=== PATIENT | female | born 2005 | race Caucasian/White ===

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

== ENCOUNTER 2023-04-22 13:55 | Emergency (ER) | payer BC, SELFPAY ==
[2023-04-22 13:56] VITALS: BP 133/79; PULSE 77; RESP 14; TEMP 36.4; O2SAT 98; BMI 29.1
--- NOTE | 2023-04-22 14:08 | EX.ED.VIS.HA ---
HPI History of Present Illness Chief Complaint: Headache Informant: patient Onset/Context/Timing Onset: Days (9 days) Narrative Narrative: Patient presents secondary to migraine headache. She has a history of frequent migraines and does follow-up with a neurologist. This particular migraine has been ongoing for the past 9 days. She had an appointment with her neurologist on the fourth but it was canceled. She is trying her normal meds at home without improvement. She denies head injury or URI symptoms. She complains of pain to the left frontal area and behind her left eye. She had some slight vision changes when driving yesterday. She has nausea but no vomiting. She does have light sensitivity. [facility] Medical History (Updated 04/22/23 @ 15:[address] Heidy Perkins MD) ADHD Migraines Home Medications methylphenidate HCl 54 mg tablet,extended release 24 hr (Concerta) 36 mg PO DAILY 03/24/21 [History Last Taken Unknown] Allergy/AdvReac Type Severity Reaction Status Date / Time amoxicillin Allergy Hives Verified 04/22/23 13:55 Social History household members: family Smoking Status: Never smoker alcohol intake: never substance use type: does not use ROS ROS ED Constitutional Constitutional ED: Denies chills or fever(s) Eyes Eyes: Reports change in vision; Denies discharge from eye(s) ENT ENT ED: Denies discharge from eye(s), rhinorrhea or sore throat Cardiovascular Cardiovascular: Denies chest pain or palpitations Respiratory/Chest Respiratory/Chest: Denies cough or dyspnea Gastrointestinal Gastrointestinal: Reports nausea; Denies abdominal pain or vomiting Musculoskeletal Musculoskeletal: Denies back pain, extremity pain or neck pain Integumentary Denies Abrasions or rash Neurologic Neurologic: Reports headache(s); Denies weakness Psychiatric Psychiatric: Denies anxiety or depression Allergic/Immunologic Allergic/Immunologic ED: Denies lip swelling or urticaria EXAM Physical Exam Const Vital Signs: 04/22/23 13:56 Temperature 97.6 F L Temperature Source Temporal Pulse Rate 77 Respiratory Rate 14 Blood Pressure 133/79 H Blood Pressure Mean 97 Pulse Ox 98 Oxygen Delivery Method Room Air Positive well nourished and well developed General Appearance ED: well developed HEENT Reports normocephalic and head/scalp atraumatic Eyes EOMs intact bilaterally Neck supple Chest Wall inspection of chest normal and palpation of chest normal Resp normal respiratory effort and clear to auscultation bilaterally Cardio regular rate and regular rhythm GI non-tender Auscultation: hypoactive bowel sounds Palpation: soft Extremity normal to inspection Neuro oriented x3 and no sensory deficits noted Sensorium / Orientation: alert Motor Exam: strength 5/5 throughout Psych mental status grossly normal Skin no rashes or lesions noted MDM MDM MDM Narrative Medical decision making narrative: IV line established. Patient given IV fluids along with Toradol, Reglan, Benadryl. Treatment and Re-Evaluation Narrative: Patient was reevaluated an hour after her medication. She states her headache is significantly improved. She has family here at bedside with her who will drive her home. Return instructions were provided. Discharge Plan Triage Chief Complaint: Headache ED Provider: Heidy Perkins Dx/Rx/DC Orders Clinical Impression: Migraine Instructions: ED, Migraine (Classical) Prescriptions: No Action methylphenidate HCl [Concerta] 54 mg tablet extended release 24hr 36 mg PO DAILY Primary Care Provider: Alyssa Holloway Referrals: Alyssa Holloway MD [Primary Care Provider] - As Needed Disposition Disposition: Home, Self Care
[2023-04-22] MEDS: 0.9% Normal Saline (1000mL) 1,000 ML 999 ML IV (14:17)
[2023-04-22] MEDS: Ketorolac 30 MG/ML Syringe IV (14:18)
[2023-04-22] MEDS: Metoclopramide 10 MG/2 ML Vial IV (14:19)
[2023-04-22] MEDS: DiphenhydrAMINE 50 MG/ML Syringe 25 MG IV (14:19)
== END 2023-04-22 15:31 | disposition home or self-care (01) ==
PROVIDERS: Emergency Provider Emergency Medicine; PCP Pediatrics; Visit Provider Emergency Medicine
DX: G43.909 Migraine, unspecified, not intractable, without status migrainosus (principal)
CPT/HCPCS: 96361; 96374; 96375; 99283; J7030; A4216

== ENCOUNTER 2023-07-29 10:35 | Emergency (ER) | payer BC, SELFPAY ==
[2023-07-29 10:36] VITALS: BP 125/70; PULSE 85; RESP 16; TEMP 35.4; O2SAT 100
--- NOTE | 2023-07-29 10:52 | EX.ED.VIS.HA ---
HPI History of Present Illness Chief Complaint: Headache Detail of Chief Complaint: Headache Informant: patient Narrative Narrative: Patient presents to the emergency department with complaint of a headache that started 3 days ago. Patient has history of migraines. Headache location is behind the left eye which is classic for her. Patient normally takes Ubrelvy prescribed by neurologist but did not seem to help. She complains of nausea. She denies photophobia. She has been to the ER before for these headaches. Denies recent illness. Denies falls or head injuries. [facility] Medical History (Updated 07/29/23 @ 11:[address] Carmelo Santos, DO) ADHD Migraines Home Medications methylphenidate HCl 54 mg tablet,extended release 24 hr (Concerta) 36 mg PO DAILY 03/24/21 [History Last Taken Unknown] Allergy/AdvReac Type Severity Reaction Status Date / Time amoxicillin Allergy Hives Verified 04/22/23 13:55 Social History household members: family Smoking Status: Never smoker alcohol intake: never substance use type: does not use ROS ROS ED Review of Systems ROS Unobtainable: other Constitutional Constitutional ED: Reports lethargy; Denies chills, fever(s), sweats or weight loss Eyes Eyes: Denies blurry vision, change in vision or diplopia ENT ENT ED: Denies rhinorrhea or sore throat Cardiovascular Cardiovascular: Reports chest pain and racing heartbeat; Denies orthopnea Respiratory/Chest Respiratory/Chest: Reports dyspnea and dyspnea on exertion; Denies cough, orthopnea or sputum Gastrointestinal Gastrointestinal: Reports nausea; Denies abdominal pain, diarrhea or vomiting Genitourinary Genitourinary ED: Denies dysuria, hematuria or urinary frequency Musculoskeletal Musculoskeletal: Denies arthralgias, back pain, myalgias or neck pain Integumentary Denies abscess, Abrasions or rash Neurologic Neurologic: Reports headache(s); Denies weakness Psychiatric Psychiatric: Denies anxiety, depression or suicidal thoughts Endocrine Endocrinology: Denies polydipsia, polyphagia or polyuria Hematologic/Lymphatic Hematologic/Lymphatic: Denies easy bleeding, easy bruising or lymphadenopathy Allergic/Immunologic Allergic/Immunologic ED: Denies mouth swelling, tongue swelling or urticaria EXAM Physical Exam Const Vital Signs: 07/29/23 10:36 07/29/23 12:21 Temperature 95.8 F L Temperature Source Temporal Pulse Rate 85 77 Respiratory Rate 16 16 Blood Pressure 125/70 H 127/69 H Blood Pressure Mean 88 88 Pulse Ox 100 100 Oxygen Delivery Method Room Air Positive well nourished and well developed General Appearance ED: well developed and NAD HEENT Reports TM's clear and moist mucous membranes normocephalic and atraumatic; Negative for trauma or tenderness Tympanic Membrane ED: Yes TM's clear Eyes PERRL and EOMs intact bilaterally General Eye ED: Negative for pale conjunctiva or scleral icterus Neck no lymphadenopathy, supple and no JVD General: Negative for tenderness Chest Wall inspection of chest normal and palpation of chest normal Chest: Negative for tenderness Resp normal respiratory effort and clear to auscultation bilaterally Effort and Inspection: Negative for respiratory distress or pain with movement Auscultation: Negative for rhonchi, wheezes or diminished lung sounds Cardio regular rate, regular rhythm, S1 normal heart sound, S2 normal heart sound and no murmurs Peripheral Pulses: pulses 2+ throughout GI normal to inspection, nondistended, normoactive bowel sounds, soft to palpation, non-tender, non-distended and no masses Back/Spine no CVA tenderness and no thoracic nor lumbar tenderness Extremity normal to inspection General Extremety ED: Negative for edema General Extremity: Negative for edema Neuro oriented x3, CN's II-XII intact bilaterally, no sensory deficits noted and gait normal Neuro Narrative: Finger-nose and heel mad[place] testing within normal limits, negative Romberg, negative for drift, fundi benign. Sensorium / Orientation: awake, alert, oriented to person, oriented to place and oriented to time Motor Exam: strength 5/5 throughout and strength abnormal Psych mental status grossly normal Skin no rashes or lesions noted and no wounds MDM MDM MDM Narrative Medical decision making narrative: Tesfaye with headache that typical of her migraines. IV line will be established. Patient will be given a liter normal same fluid bolus as well as Reglan, Benadryl, and Toradol. After treatment patient headache mostly resolved currently rates her pain a 1 out of 10. Will discharge to home. Advised to push fluids. Advised return if worsening headache, difficulty with balance or speech, or condition worsening way. Discharge Plan Triage Chief Complaint: Headache ED Provider: Carmelo Santos Dx/Rx/DC Orders Clinical Impression: FH: migraine headache Instructions: ED, Migraine (Classical) Prescriptions: No Action methylphenidate HCl [Concerta] 54 mg tablet extended release 24hr 36 mg PO DAILY Primary Care Provider: Alyssa Holloway Referrals: Alyssa Holloway MD [Primary Care Provider] - Activity Restrictions/Additional Instructions: Follow-up with your neurologist as needed. Disposition Disposition: Home, Self Care Discharge Date/Time: 07/29/23 12:27
[2023-07-29] MEDS: DiphenhydrAMINE 50 MG/ML Syringe 25 MG IV (11:04)
[2023-07-29] MEDS: 0.9% Normal Saline (1000mL) 1,000 ML 1000 ML IV (11:04)
[2023-07-29] MEDS: Metoclopramide 10 MG/2 ML Vial IV (11:05)
[2023-07-29] MEDS: Ketorolac 30 MG/ML Syringe IV (11:05)
[2023-07-29 12:21] VITALS: BP 127/69; PULSE 77; RESP 16; O2SAT 100
--- OUTSIDE RECORDS SUMMARY | 2023-07-29 12:23 | XMS RPT_ITS | CCD ---
Author Name Unknown Address [address] [place] [address] Organization [facility] Care Team Providers Care Composite Mechanic Name Role Phone Jewel MENDOZA, Porsha Primary Care Provider PORSHA HOLLOWAY Attending Unavailable JEWEL, PORSHA Primary Care Unavailable JESSICA SHERMAN Attending Unavailable JESSICA SHERMAN Referring Unavailable JEWEL, PORSHA Primary Care Unavailable JEWEL, PORSHA Primary Care Unavailable JEWEL, PORSHA Primary Care Unavailable NENA AGUERO Attending Unavailable JEWEL, PORSHA Primary Care Unavailable JEWEL, PORSHA Attending Unavailable JEWEL, PORSHA Primary Care Unavailable JEWEL, PORSHA Primary Care Unavailable JEWEL, PORSHA Referring Unavailable JEWEL, PORSHA Primary Care Unavailable Allergies Allergy Classification Reported Allergen(s) Allergy Type Date of Onset Reaction(s) Facility (12 sources) Amoxicillin; Translations: [AMOXICILLIN] Drug Allergy 06-18-2008 [facility] Work Phone: Medications Current Medications Medication Drug Class(es) Dates Sig (Normalized) Sig (Original) predniSONE 20 mg oral tablet (1 source) Start: 04-18-2023 End: 04-23-2023 take 2 tablets by mouth once daily predniSONE (DELTASONE) 20 mg tablet Indications: Headache, unspecified headache type Take 2 tablets by mouth once daily for 5 days. 10 tablet 0 04/18/2023 04/23/2023 Active Completed/Discontinued Medications Medication Drug Class(es) Dates Sig (Normalized) Sig (Original) escitalopram 10 mg oral tablet (12 sources) Serotonin Reuptake Inhibitor Start: 05-29-2021 End: 04-02-2022 take 1 tablet by mouth once daily escitalopram oxalate (LEXAPRO) 10 mg tablet Take 1 tablet by mouth once daily. 90 tablet 2 04/03/2022 Active Problems Active Problems Problem Classification Problem Date Documented Date Episodic/Chronic Anxiety disorders (11 sources) Generalized anxiety disorder; Translations: [Generalized anxiety disorder] Onset: 04-27-2021 04-27-2021 Chronic Conditions associated with dizziness or vertigo (1 source) Acute labyrinthitis; Translations: [Labyrinthitis, unspecified ear] Episodic Disorders usually diagnosed in infancy, childhood, or adolescence (11 sources) Attention deficit hyperactivity disorder, predominantly inattentive type; Translations: [Other specified behavioral and emotional disorders with onset usually occurring in childhood and adolescence] Onset: 04-15-2014 04-15-2014 Chronic Headache; including migraine (14 sources) Migraine; Translations: [Migraine, unspecified, not intractable, without status migrainosus] Onset: 04-04-2021 04-04-2021 Chronic Headache; including migraine (1 source) Headache; Translations: [Headache, unspecified headache type] 04-18-2023 Episodic Nutritional deficiencies (2 sources) Vitamin D deficiency; Translations: [Vitamin D deficiency, unspecified] Onset: 11-26-2022 Chronic Other eye disorders (1 source) Chalazion of left upper eyelid; Translations: [Chalazion left upper eyelid] Episodic Other upper respiratory infections (4 sources) Sore throat symptom; Translations: [Acute pharyngitis, unspecified] Episodic Past or Other Problems Problem Classification Problem Date Documented Da te Episodic/Chronic Diabetes mellitus without complication (2 sources) Hyperglycemia; Translations: [Hyperglycemia, unspecified] Onset: 11-26-2022 Episodic Other screening for suspected conditions (not mental disorders or infectious disease) (5 sources) Patient encounter status; Translations: [Encounter for screening for other suspected endocrine disorder] Onset: 11-26-2022 Episodic Results Test Name Value Interpretation Reference Range Facil ity Vital Signs Date Time Vital Sign Value Performing Clinician Ольга sandoval 05-02-2023 11:24-0400 Body height 160 cm Nena Aguero APRN.CNP Work Phone: [facility] 05-02-2023 11:24-0400 Body weight 74.84 kg Nena Aguero APRN.CNP Work Phone: [facility] 05-02-2023 11:24-0400 Diastolic blood pressure 79 mm[Hg] Nena Aguero DANCE DIRECTOR.PUMPMAN Work Phone: [facility] 05-02-2023 11:24-0400 Heart rate 86 /min Nena Aguero DANCE DIRECTOR.PUMPMAN Work Phone: [facility] 05-02-2023 11:24-0400 Systolic blood pressure 129 mm[Hg] Nena Aguero DANCE DIRECTOR.PUMPMAN Work Phone: [facility] 04-18-2023 08:54-0400 Body temperature 97.9 [degF] Chang Roberto DANCE DIRECTOR.PUMPMAN Work Phone: [facility] 04-18-2023 08:54-0400 Body weight 74.12 kg Chang Roberto DANCE DIRECTOR.PUMPMAN Work Phone: [facility] 04-18-2023 08:54-0400 Diastolic blood pressure 78 mm[Hg] Chang Roberto DANCE DIRECTOR.PUMPMAN Work Phone: [facility] 04-18-2023 08:54-0400 Heart rate 90 /min Chang Roberto DANCE DIRECTOR.PUMPMAN Work Phone: [facility] 04-18-2023 08:54-0400 Respiratory rate 19 /min Chang Roberto DANCE DIRECTOR.PUMPMAN Work Phone: [facility] 04-18-2023 08:54-0400 SaO2% (BldA) [Mass fraction] 99 % Chang Roberto DANCE DIRECTOR.PUMPMAN Work Phone: [facility] 04-18-2023 08:54-0400 Systolic blood pressure 100 mm[Hg] Chang Roberto DANCE DIRECTOR.PUMPMAN Work Phone: [facility] 11-26-2022 13:18-0400 Body temperature 98.1 [degF] Porsha Holloway MD Work Phone: [facility] 11-26-2022 13:18-0400 Body weight 72.76 kg Porsha Holloway MD Work Phone: [facility] 11-26-2022 13:18-0400 Diastolic blood pressure 80 mm[Hg] Porsha Holloway MD Work Phone: [facility] 11-26-2022 13:18-0400 Heart rate 104 /min Porsha Holloway MD Work Phone: [facility] 11-26-2022 13:18-0400 Respiratory rate 20 /min Porsha Holloway MD Work Phone: [facility] 11-26-2022 13:18-0400 Systolic blood pressure 116 mm[Hg] Porsha Holloway MD Work Phone: [facility] 10-11-2022 07:36-0400 Body temperature 98.1 [degF] Flor Cline DANCE DIRECTOR.PUMPMAN Work Phone: [facility] 10-11-2022 07:36-0400 Body weight 71.76 kg Flor Cline DANCE DIRECTOR.PUMPMAN Work Phone: [facility] 10-11-2022 07:36-0400 Diastolic blood pressure 78 mm[Hg] Flor Cline DANCE DIRECTOR.PUMPMAN Work Phone: [facility] 10-11-2022 07:36-0400 Heart rate 116 /min Flor Cline DANCE DIRECTOR.PUMPMAN Work Phone: [facility] 10-11-2022 07:36-0400 Respiratory rate 21 /min Flor Cline DANCE DIRECTOR.PUMPMAN Work Phone: [facility] 10-11-2022 07:36-0400 SaO2% (BldA) [Mass fraction] 98 % Flor Cline DANCE DIRECTOR.PUMPMAN Work Phone: [facility] 10-11-2022 07:36-0400 Systolic blood pressure 98 mm[Hg] Flor Cline DANCE DIRECTOR.PUMPMAN Work Phone: [facility] 08-07-2022 08:15-0500 Body temperature 97.2 [degF] Chang Roberto DANCE DIRECTOR.PUMPMAN Work Phone: [facility] 08-07-2022 08:15-0500 Body weight 72.3 kg Chang Roberto DANCE DIRECTOR.PUMPMAN Work Phone: [facility] 08-07-2022 08:15-0500 Diastolic blood pressure 78 mm[Hg] Chang Roberto DANCE DIRECTOR.PUMPMAN Work Phone: [facility] 08-07-2022 08:15-0500 Heart rate 94 /min Chang Pardeep DANCE DIRECTOR.PUMPMAN Work Phone: [facility] 08-07-2022 08:15-0500 Respiratory rate 18 /min Chang Roberto DANCE DIRECTOR.PUMPMAN Work Phone: [facility] 08-07-2022 08:15-0500 SaO2% (BldA) [Mass fraction] 97 % Chang Roberto DANCE DIRECTOR.PUMPMAN Work Phone: [facility] 08-07-2022 08:15-0500 Systolic blood pressure 110 mm[Hg] Chang Pardeep DANCE DIRECTOR.PUMPMAN Work Phone: [facility] 04-27-2022 13:41-0400 Body weight 70.76 kg Jessica Sherman DO Work Phone: [facility] 04-27-2022 13:41-0400 Diastolic blood pressure 73 mm[Hg] Jessica Sherman DO Work Phone: [facility] 04-27-2022 13:41-0400 Heart rate 75 /min Jessica Sherman DO Work Phone: [facility] 04-27-2022 13:41-0400 Systolic blood pressure 110 mm[Hg] Jessica Sherman DO Work Phone: [facility] 03-16-2022 12:58-0400 Body temperature 98.71 [degF] Jennifer Pulido DANCE DIRECTOR.PUMPMAN Work Phone: [facility] 03-16-2022 12:58-0400 Body weight 71.58 kg Jennifer Pulido DANCE DIRECTOR.PUMPMAN Work Phone: [facility] 03-16-2022 12:58-0400 Diastolic blood pressure 82 mm[Hg] Jennifer Praisler-Wood DANCE DIRECTOR.PUMPMAN Work Phone: [facility] 03-16-2022 12:58-0400 Heart rate 86 /min Jennifer Praisler-Wood DANCE DIRECTOR.PUMPMAN Work Phone: [facility] 03-16-2022 12:58-0400 Respiratory rate 18 /min Jennifer Praisler-Wood DANCE DIRECTOR.PUMPMAN Work Phone: [facility] 03-16-2022 12:58-0400 SaO2% (BldA) [Mass fraction] 100 % Jennifer Praisler-Wood DANCE DIRECTOR.PUMPMAN Work Phone: [facility] 03-16-2022 12:58-0400 Systolic blood pressure 120 mm[Hg] Jennifer Praisler-Wood DANCE DIRECTOR.PUMPMAN Work Phone: [facility] 03-05-2022 13:32-0400 Body temperature 97.7 [degF] Porsha Holloway MD Work Phone: [facility] 03-05-2022 13:32-0400 Body weight 70.67 kg Porsha Holloway MD Work Phone: [facility] 03-05-2022 13:32-0400 Diastolic blood pressure 76 mm[Hg] Porsha Holloway MD Work Phone: [facility] 03-05-2022 13:32-0400 Heart rate 88 /min Porsha Holloway MD Work Phone: [facility] 03-05-2022 13:32-0400 Respiratory rate 16 /min Porsha Holloway MD Work Phone: [facility] 03-05-2022 13:32-0400 Systolic blood pressure 116 mm[Hg] Porsha Holloway MD Work Phone: [facility] 12-05-2021 13:35-0400 Body temperature 98.6 [degF] Porsha Holloway MD Work Phone: [facility] 12-05-2021 13:35-0400 Body weight 65.77 kg Porsha Holloway MD Work Phone: [facility] 12-05-2021 13:35-0400 Diastolic blood pressure 72 mm[Hg] Porsha Holloway MD Work Phone: [facility] 12-05-2021 13:35-0400 Heart rate 88 /min Porsha Holloway MD Work Phone: [facility] 12-05-2021 13:35-0400 Respiratory rate 16 /min Porsha Holloway MD Work Phone: [facility] 12-05-2021 13:35-0400 Systolic blood pressure 110 mm[Hg] Porsha Holloway MD Work Phone: [facility] Encounters Encounter Date Encounter Type Care Provider Facility Start: 05-02-2023 End: 05-02-2023 ambulatory NENA AGUERO Facility:[facility] Start: 05-02-2023 End: 05-02-2023 Patient encounter procedure Nena Aguero DANCE DIRECTOR.PUMPMAN Work Phone: Neurology Procedures Date Procedure Procedure Detail Performing Clinician Start: 10-11-2022 STREP A MOLECULAR (POC) Flor Cline DANCE DIRECTORShelliePUMPMAN Work Phone: Start: 08-07-2022 STREP A MOLECULAR (POC) [facility] Provider Start: 02-24-2022 Adult depression screening assessment Porsha Holloway MD Work Phone: Start: 12-02-2021 Adult depression screening assessment Porsha Holloway MD Work Phone: Plan of Treatment Date Care Activity Detail Author Start: 03-16-2024 Urine microalbumin profile [facility] Start: 03-15-2023 Covid-19 Vaccine () Covid-19 Vaccine () [facility] Start: 03-15-2023 Influenza vaccination [facility] Start: 02-24-2023 Adult depression screening assessment DEPRESSION SCREENING [facility] Start: 12-02-2022 Adult depression screening assessment DEPRESSION SCREENING [facility] Start: 11-26-2022 End: 07-15-2023 Basic metabolic 2000 panel - Serum or Plasma [facility] Work Phone: Immunizations Immunization Date Immunization Notes Care Provider Frantz dailey 05-11-2021 COVID-19 vaccine, ag e 12+ yr ([employer] - PURPLE TOP) Porsha Holloway MD Work Phone: [facility] 07-16-2019 influenza, injectabl e, quadrivalent, preservative free Porsha Holloway MD Work Phone: [facility] 07-16-2019 meningococcal polysaccharide (groups A, C, Y and W-135) diphtheria toxoid conjugate vaccine (MCV4P) Porsha Holloway MD Work Phone: [facility] 07-16-2019 influenza virus vacc ine, unspecified formulation Chang Roberto APRN.CNP Work Phone: [facility] 01-23-2016 Human Papillomavirus 9-valent vaccine Porsha Holloway MD Work Phone: [facility] 02-11-2015 human papilloma viru s vaccine, quadrivalent Porsha Holloway MD Work Phone: [facility] 04-30-2014 influenza, injectabl e, quadrivalent, preservative free Porsha Holloway MD Work Phone: [facility] 03-16-2014 human papilloma viru s vaccine, quadrivalent Porsha Holloway MD Work Phone: [facility] 03-16-2014 meningococcal polysaccharide (groups A, C, Y and W-135) diphtheria toxoid conjugate vaccine (MCV4P) Porsha Holloway MD Work Phone: [facility] 03-16-2014 tetanus toxoid, redu stalin diphtheria toxoid, and acellular pertussis vaccine, adsorbed Porsha Holloway MD Work Phone: [facility] 05-27-2010 influenza virus vacc ine, live, attenuated, for intranasal use Porsha Holloway MD Work Phone: [facility] 04-14-2009 influenza virus vacc ine, live, attenuated, for intranasal use Porsha Holloway MD Work Phone: [facility] Work Phone: 04-21-2008 influenza virus vacc ine, unspecified formulation Porsha Holloway MD Work Phone: [facility] Work Phone: 02-24-2008 diphtheria, tetanus toxoids and acellular pertussis vaccine Porsha Holloway MD Work Phone: [facility] Work Phone: 02-24-2008 measles, mumps and rubella virus vaccine Porsha Holloway MD Work Phone: [facility] Work Phone: 02-24-2008 poliovirus vaccine, inactivated Porsha Holloway MD Work Phone: [facility] Work Phone: 02-24-2008 varicella virus vaccine Angela Holloway MD Work Phone: [facility] Work Phone: 02-27-2005 diphtheria, tetanus toxoids and acellular pertussis vaccine Porsha Holloway MD Work Phone: [facility] Work Phone: 02-27-2005 pneumococcal conjuga te vaccine, 7 valent Porsha Holloway MD Work Phone: [facility] Work Phone: 11-22-2004 haemophilus influenz ae type b vaccine, HbOC conjugate Porsha Holloway MD Work Phone: [facility] Work Phone: 11-22-2004 measles, mumps and rubella virus vaccine Porsha Holloway MD Work Phone: [facility] Work Phone: 11-22-2004 poliovirus vaccine, inactivated Porsha Holloway MD Work Phone: [facility] Work Phone: 02-29-2004 varicella virus vaccine Angela Holloway MD Work Phone: [facility] Work Phone: 2003 DTaP-hepatitis B and poliovirus vaccine Porsha Holloway MD Work Phone: [facility] Work Phone: 2003 haemophilus influenz ae type b vaccine, HbOC conjugate Porsha Holloway MD Work Phone: [facility] Work Phone: 2003 pneumococcal conjuga te vaccine, 7 valent Porsha Holloway MD Work Phone: [facility] Work Phone: 2003 DTaP-hepatitis B and poliovirus vaccine Porsha Holloway MD Work Phone: [facility] Work Phone: 2003 haemophilus influenz ae type b vaccine, HbOC conjugate Porsha Holloway MD Work Phone: [facility] Work Phone: 2003 pneumococcal conjuga te vaccine, 7 valent Porsha Holloway MD Work Phone: [facility] Work Phone: 2003 DTaP-hepatitis B and poliovirus vaccine Porsha Holloway MD Work Phone: [facility] Work Phone: 2003 haemophilus influenz ae type b vaccine, HbOC conjugate Porsha Holloway MD Work Phone: [facility] Work Phone: 2003 pneumococcal conjuga te vaccine, 7 valent Porsha Holloway MD Work Phone: [facility] Work Phone: Payers Date Payer Category Payer Unknown [employer] PPO OOS [id number] 2019-Present [phone] [address] [place] [address] PPO [id number] 2019 Unknown [id number] 2019 Unknown [id number] Social History Date Type Detail Facility Start: 03-05-2022 Tobacco smoking stat us NHIS Never smoked tobacco [facility] Start: 12-05-2021 End: 05-02-2023 Alcohol intake Current non-drinker of alcohol (finding) [facility] Start: 12-02-2021 History SDOH Social Connections Phone 5 [facility] Start: 12-02-2021 History SDOH Social Connections Get Together 2 [facility] Start: 12-02-2021 History SDOH Social Connections Synagogue 1 [facility] Start: 12-02-2021 History SDOH Social Connections Meetings 3 [facility] Start: 12-02-2021 History SDOH Social Connections Living 98 [facility] Start: 12-02-2021 History SDOH Physica l Activity MPS 6 [facility] Start: 02-16-2009 End: 03-05-2022 Tobacco Comment Not at home but grandmother smokes [facility] Start: 2003 Sex Assigned At Not on file [facility] Start: 11-25-2021 End: 04-27-2022 Exposure to SARS-CoV-2 (event) Not sure [facility] Start: 03-05-2022 Tobacco use and exposure Smoke less tobacco non-user [facility] Start: 12-02-2021 End: 11-26-2022 History of Social function [facility] Start: 12-02-2021 End: 11-26-2022 Social connection and isolation panel [facility] Do you belong to any clubs or organizations such as holiness groups, unions, fraternal or athletic groups, or school groups? Yes [facility] Are you now , , , , never or living with a partner? Refused [facility] How often to you hav e a drink containing alcohol? Patient refused [facility] Do you feel stress - tense, restless, nervous, or anxious, or unable to sleep at night because your mind is troubled all the time - these days [OSQ] Not at all [facility] (I/We) worried cristela er (my/our) food would run out before (I/we) got money to buy more. DK or Refused [facility] Clinical Notes 10-27-2015 to 05-02-2023 Patient InstructionsNena Aguero APRN.CNP - 05/02/2023 11:30 AM EDTPatient InstructionsChang Roberto APRN.CNP - 04/18/2023 10:05 AM Levon Holloway MD - 11/26/2022 1:44 PM EDT Note Date & Type Note Facility 05-02-2023 Note HNO ID: [id number] Author: Nena Aguero APRN.CNP Service: ? Author Type: Nurse Practitioner Type: Progress Notes Filed: 05/02/2023 12:35 PM Note Text: [facility] - Follow up Visit Accompanied by: Self Primary Problem List: ACTIVE PROBLEM LIST Add (Attention Deficit Disorder) Migraine Nikita (Generalized Anxiety Disorder) Chief Complaint: Follow-up Impression and Plan from last visit: [facility] 11/09/[address] Sherman. Ms. Diana is a 18-year-old female with history significant for migraine and anxiety. At her last visit she was to trial Ubrelvy. Interval Headache History: She went to ER on 04/22 for intractable migraine. She was given IV cocktail of medications. This was effective and she did receive relief. Headache 1 Location: bilateral, retro-orbital, temporal and frontal (L > R) Quality/Description: throbbing Associated Symptoms: Photophobia: yes Phonophobia: yes Nausea: yes Vomiting: no Other symptoms: osmophobia Worse with activity: yes Number of migraine headache days/month: 5 Number of headache free days/month: 25 Current preventive treatment: Co Q10 Current abortive treatment: Ubrelvy, Zofran Triggers: video display/TV Relieving factors: Medication (Ubrelvy typically works about 50% of the time) Aura: numbness and tingling (30 minutes) Days missed from work or school in the last month: 1 days Headache status since the last visit: better Prior Therapies Duration of Use Dose Reason for Discontinuation Anti-Depressant and Antipsychotic Escitalopram (Lexapro) Antiemetics Ondansetron Anti-Migraine Rizatriptan (Maxalt) Lack of efficacy Sumatriptan (Imitrex, Sumavel) [place] worse GEPANTS Ubrogepant (Ubrelvy) Supplements Migravent Other Medications Diphenhydramine (Benadryl) Methylprednisolone (Medrol) Prednisone Over the Counter Medications Acetaminophen (Tylenol) Acetaminophen/Aspirin/Caffeine (Excedrin, Goody?s) Aspirin Ibuprofen (Advil, Motrin) Naproxen sodium (Aleve) PAST MEDICAL HISTORY Diagnosis Date ADD (attention deficit disorder) 04/15/2014 PMH - PAST MEDICAL HISTORY OF age 3.5 years cyst on left hand - base of left ring finger - did see ortho - no surgery PMH - PAST MEDICAL HISTORY OF normal color vision 05/2010 PAST SURGICAL HISTORY Procedure Laterality Date TONSILLECTOMY AND ADENOIDECTOMY 11/2009 Dr. Shree [facility] REMOVAL [facility] 02/03/2014 left side of foot, cut out by Dr. Thornton ALLERGIES Allergen Reactions Amoxicillin Rash Issues and questions to be addressed: Medications ondansetron orally disintegrating (ZOFRAN ODT) 4 mg disintegrating tablet Take 1 tablet by mouth every 6 hours as needed for nausea/vomiting. ubrogepant (UBRELVY) 100 mg tablet Take 1 tab at migraine onset. May repeat once in 2 hours as needed. CRISTA FE 1.5/30, 28, 1.5 mg-30 mcg (21)/75 mg (7) tablet Take 1 tablet by mouth once daily. escitalopram oxalate (LEXAPRO) 10 mg tablet Take 1 tablet by mouth once daily. (Patient not taking: Reported on 04/18/2023) loratadine (CLARITIN) 10 mg tablet Take 10 mg by mouth once daily. I have reviewed the [place] Status Assessment responses and discussed these with the patient: Yes, Nena Aguero, AMITA.PUMPMAN HEADACHE SCORES: Headache Questions 04/10/2023 04/25/2023 ER visits since last office visit: 0 - Hospital stays since last office visit 0 - Limited ADLs in the last month: 2 - Days missed from work or school in the last month: 1 - Days headache pain free in the last month: 9 - Days per month with ALL of the following symptoms - decreased productivity, light sensitivity and nausea: 5 - Initial improvement of headache after botox injection at last visit: Not applicable, I did not have a botox injection at my last visit - PRN medication usage in the last month: 0 - Patient impression of improvement since last visit: Much improved Much improved HIT-6 11/09/2022 04/13/2023 04/25/2023 HIT-6 64 (Severe impact) 55 (Moderate impact) 56 (Substantial impact) NIKITA - 2/7 SCORES 04/13/2023 04/13/2023 04/25/2023 NIKITA-2 Score 2 2 1 NIKITA-7 Score - - - Migraine Specific QOL - Higher scores indicate better HRQL 11/09/2022 04/13/2023 04/25/2023 Role Function-Restrictive Transformed Score (range: 0-100) 51.43 60 40 Role Function-Preventive Transformed Score (range: 0-100) 60 65 45 Emotional Function Transformed Score (range: 0-100) 53.33 73.33 73.33 PHQ-9 04/13/2023 04/13/2023 04/25/2023 Score 3 3 3 Studies to Review: No New Health Issues: No New Social History: No New Family History: No Review of Systems: Review of system: unchanged from the previous visit (sleep patterns, mood, energy, appetite, stress, exercising). Physical Examination: BP 129/79 Pulse 86 Ht 160 cm (5' 3 ) Wt 74.8 kg (165 lb) LMP 03/25/2023 (Approximate) BMI 29.23 kg/m? General: Well appearing, in no acute distress, alert. HEENT: Normocephalic/atraumatic. Skin: Color, textu (more content not included)... [facility] 05-02-2023 Instructions Nena Aguero, AMITA.[facility] - 05/02/2023 11:57 AM EDT Vitamins and herbs that show potential Magnesium: Magnesium (250 mg twice a day or 500 mg at bed) has a relaxant effect on smooth muscles such as blood vessels. Individuals suffering from frequent or daily headache usually have low magnesium levels which can be increase with daily supplementation of 500-750 mg. Three trials found 40-90% average headache reduction when used as a preventative. Magnesium also demonstrated the benefit in menstrually related migraine. Magnesium is part of the messenger system in the serotonin cascade and it is a good muscle relaxant. It is also useful for constipation which can be a side effect of other medications used to treat migraine. Good sources include nuts, whole grains, and tomatoes. Magnesium glycinate is what I recommend. This typically helps with migraines, sleep and anxiety. I recommend taking 500 mg at bedtime. Riboflavin (vitamin B 2) 200 mg twice a day or 400 mg daily. This vitamin assists nerve cells in the production of ATP a principal energy storing molecule. It is necessary for many chemical reactions in the body. There have been at least 3 clinical trials of riboflavin using 400 mg per day all of which suggested that migraine frequency can be decreased. All 3 trials showed significant improvement in over half of migraine sufferers. The supplement is found in bread, cereal, milk, meat, and poultry. Most Americans get more riboflavin than the recommended daily allowance, however riboflavin deficiency is not necessary for the supplements to help prevent headache. Coenzyme Q10: This is present in almost all cells in the body and is critical component for the conversion of energy. Recent studies have shown that a nutritional supplement of CoQ10 can reduce the frequency of migraine attacks by improving the energy production of cells as with riboflavin. Doses of 150 mg twice a day have been shown to be effective.(www.[facility].[employer]). Consider intermittent FMLA for migraines. Typically this is paperwork we need to complete and is given to you by your HR department. documented in this encounter [facility] 05-02-2023 History of Presen t illness Narrative Headache Center - Follow up Visit Accompanied by: Self Primary Problem List: ACTIVE PROBLEM LIST Add (Attention Deficit Disorder) Migraine Nikita (Generalized Anxiety Disorder) Chief Complaint: Follow-up Impression and Plan from last visit: [facility] 11/09/[address] Sherman. Ms. Diana is a 18-year-old female with history significant for migraine and anxiety. At her last visit she was to trial Ubrelvy. Interval Headache History: She went to ER on 04/22 for intractable migraine. She was given IV cocktail of medications. This was effective and she did receive relief. Headache 1 Location: bilateral, retro-orbital, temporal and frontal (L > R) Quality/Description: throbbing Associated Symptoms: Photophobia: yes Phonophobia: yes Nausea: yes Vomiting: no Other symptoms: osmophobia Worse with activity: yes Number of migraine headache days/month: 5 Number of headache free days/month: 25 Current preventive treatment: Co Q10 Current abortive treatment: Ubrelvy, Zofran Triggers: video display/TV Relieving factors: Medication (Kvng typically works about 50% of the time) Aura: numbness and tingling (30 minutes) Days missed from work or school in the last month: 1 days Headache status since the last visit: better Prior Therapies Duration of Use Dose Reason for Discontinuation Anti-Depressant and Antipsychotic Escitalopram (Lexapro) Antiemetics Ondansetron Anti-Migraine Rizatriptan (Maxalt) Lack of efficacy Sumatriptan (Imitrex, Sumavel) [place] worse GEPANTS Ubrogepant (Ubrelvy) Supplements Migravent Other Medications Diphenhydramine (Benadryl) Methylprednisolone (Medrol) Prednisone Over the Counter Medications Acetaminophen (Tylenol) Acetaminophen/Aspirin/Caffeine (Excedrin, Goody s) Aspirin Ibuprofen (Advil, Motrin) Naproxen sodium (Aleve) PAST MEDICAL HISTORY Diagnosis Date ADD (attention deficit disorder) 04/15/2014 PMH - PAST MEDICAL HISTORY OF age 1.5 years cyst on left hand - base of left ring finger - did see ortho - no surgery PMH - PAST MEDICAL HISTORY OF normal color vision 05/2010 PAST SURGICAL HISTORY Procedure Laterality Date TONSILLECTOMY & ADENOIDECTOMY <AGE 10 11/2009 Dr. Shree STAFFORD REMOVAL WHI 02/03/2014 left side of foot, cut out by Dr. Thornton ALLERGIES Allergen Reactions Amoxicillin Rash Issues and questions to be addressed: Medications ondansetron orally disintegrating (ZOFRAN ODT) 4 mg disintegrating tablet Take 1 tablet by mouth every 6 hours as needed for nausea/vomiting. ubrogepant (UBRELVY) 100 mg tablet Take 1 tab at migraine onset. May repeat once in 2 hours as needed. CRISTA FE 1.5/30, 28, 1.5 mg-30 mcg (21)/75 mg (7) tablet Take 1 tablet by mouth once daily. escitalopram oxalate (LEXAPRO) 10 mg tablet Take 1 tablet by mouth once daily. (Patient not taking: Reported on 04/18/2023) loratadine (CLARITIN) 10 mg tablet Take 10 mg by mouth once daily. I have reviewed the [place] Status Assessment responses and discussed these with the patient: Yes, Nena Aguero APRN.PUMPMAN HEADACHE SCORES: Headache Questions 04/10/2023 04/25/2023 ER visits since last office visit: 0 - Hospital stays since last office visit 0 - Limited ADLs in the last month: 2 - Days missed from work or school in the last month: 1 - Days headache pain free in the last month: 9 - Days per month with ALL of the following symptoms - decreased productivity, light sensitivity and nausea: 5 - Initial improvement of headache after botox injection at last visit: Not applicable, I did not have a botox injection at my last visit - PRN medication usage in the last month: 0 - Patient impression of improvement since last visit: Much improved Much improved HIT-6 11/09/2022 04/13/2023 04/25/2023 HIT-6 64 (Severe impact) 55 (Moderate impact) 56 (Substantial impact) NIKITA - 2/7 SCORES 04/13/2023 04/13/2023 04/25/2023 NIKITA-2 Score 2 2 1 NIKITA-7 Score - - - Migraine Specific QOL - Higher scores indicate better HRQL 11/09/2022 04/13/2023 04/25/2023 Role Function-Restrictive Transformed Score (range: 0-100) 51.43 60 40 Role Function-Preventive Transformed Score (range: 0-100) 60 65 45 Emotional Function Transformed Score (range: 0-100) 53.33 73.33 73.33 PHQ-9 04/13/2023 04/13/2023 04/25/2023 Score 3 3 3 Studies to Review: No New Health Issues: No New Social History: No New Family History: No Review of Systems: Review of system: unchanged from the previous visit (sleep patterns, mood, energy, appetite, stress, exercising). Physical Examination: BP 129/79 Pulse 86 Ht 160 cm (5' 3 ) Wt 74.8 kg (165 lb) LMP 03/25/2023 (Approximate) BMI 29.23 kg/m General: Well appearing, in no acute distress, alert. HEENT: Normocephalic/atraumatic. Skin: Color, texture, turgor normal. No rashes or lesions. Musculoskeletal: No gross joint deformities. Neurological: Normal mental status. Attentive. Thought process and content unremarkable. Follows commands appropriately. Speech fluent. Normal primary gait. IMPRESSION: Migraine without aura and without status migrainosus, not intractable (primary encounter diagnosis) Ms. Diana is a 18-year-old female with history significant for migraine and anxiety. Her headaches are most consistent with episodic migraine. She is currently taking Co Q10 for migraine prevention. She finds that Ubrelvy is an effective rescue most of the time. She did have recent intractable migraine for which she received an IV cocktail at her local ER for with relief. We discussed treatment options and she will add Magnesium and Riboflavin for prevention. We will continue Ubrelvy for now but could consider Nurtec next if needed. Tyson Diana has been previously approved for an Oral Calcitonin Gene-Related Peptide Receptor Antagonist (GEPANT) Ubrogepant for the treatment of acute migraine. The patient has demonstrated the following: Provider attests patient has had a positive clinical response: Yes Patient will not use with another Oral Calcitonin Gene-Related Peptide Receptor Antagonist (GEPANT): Yes Patient's quality of life and ability to perform ADLs has improved: Yes The patient has tried and failed the following : We suggest the patient continue treatment with GEPANT Ubrogepant. The following preventative medications have been tried for three or more months without benefit: Anti-Depressant and Antipsychotic Escitalopram (Lexapro) Supplements Migravent The following abortive medications have been tried but require high frequency use which can lead to Medication Overuse Headache: Anti-Migraine Rizatriptan (Maxalt) Lack of efficacy Sumatriptan (Imitrex, Sumavel) [place] worse GEPANTS Ubrogepant (Ubrelvy) Over the Counter Medications Acetaminophen (Tylenol) Acetaminophen/Aspirin/Caffeine (Excedrin, Goody s) Aspirin Ibuprofen (Advil, Motrin) Naproxen sodium (Aleve) PLAN: HEADACHE MANAGEMENT: (You are the primary guardian of your health and headache. Keep track of all medications: This includes the reason for use, side effects and benefits.) MEDICATION TREATMENT: Abortive therapy: -Continue Ubrelvy as needed for now. -Consider Nurtec next step if needed. Preventive therapy: -Continue Co Q10. Add Magnesium and Riboflavin. -Consider Avulux glasses for triggers with computer screen/lights. -Can send intermittent FMLA paperwork for us to complete if offered by your employer. Headache education was done. Discussed triggers and lifestyle modifications. Discussed treatment options including preventive and acute medications, natural supplements, and infusion therapy. Discussed medication overuse headache and to limit use of acute treatments to no more than 2 days/week or 10 days/month. Discussed medication side effects, adverse reactions and drug interactions. Written educational materials and patient instructions outlining all of the above were given. Follow-up: 6 months, PRN Level of service: Est level 3 (20-29 min). Time spent 20 min on the day of service, which included preparing to see the patient, [id number] patient care, completing clinical documentation, obtaining and/or reviewing separately obtained history, performing a medically appropriate examination, and counseling and educating the patient/family/caregiver. Nena Aguero APRN.PUMPMAN documented in this encounter [facility] 04-18-2023 Note HNO ID: [id number] Author: Chang Roberot APRN.PUMPMAN Service: ? Author Type: Nurse Practitioner Type: Progress Notes Filed: 04/18/2023 10:10 AM Note Text: Subjective HPI HPI Tyson Diana is a 18 year old female who presents today for CC of h/a, nausea. This started 6 days ago on/off. Has tried otc medication and rx from neurology - seen for migraines. Symptoms are worsened by nothing. Denies head injury, illness, fever, lifestyle changes. Denies possibility of being . .Patient presents with: Nausea: URIAS x 6 days PAST MEDICAL HISTORY Diagnosis Date ADD (attention deficit disorder) 04/15/2014 PMH - PAST MEDICAL HISTORY OF age 1.5 years cyst on left hand - base of left ring finger - did see ortho - no surgery PMH - PAST MEDICAL HISTORY OF normal color vision 05/2010 PAST SURGICAL HISTORY Procedure Laterality Date TONSILLECTOMY AND ADENOIDECTOMY 11/2009 Dr. Shree STAFFORD REMOVAL [facility] 02/03/2014 left side of foot, cut out by Dr. Thornton ALLERGIES Amoxicillin MEDICATIONS ubrogepant (UBRELVY) 100 mg tablet Take 1 tab at migraine onset. May repeat once in 2 hours as needed. CRISTA FE 1.5/30, 28, 1.5 mg-30 mcg (21)/75 mg (7) tablet Take 1 tablet by mouth once daily. predniSONE (DELTASONE) 20 mg tablet Take 2 tablets by mouth once daily for 5 days. ondansetron orally disintegrating (ZOFRAN ODT) 4 mg disintegrating tablet Take 1 tablet by mouth every 6 hours as needed for nausea/vomiting. escitalopram oxalate (LEXAPRO) 10 mg tablet Take 1 tablet by mouth once daily. (Patient not taking: Reported on 04/18/2023) loratadine (CLARITIN) 10 mg tablet Take 10 mg by mouth once daily. FAMILY HISTORY Problem Relation Age of Onset Migraines Mother None Father None Sister None Maternal Grandmother None Maternal Grandfather None Paternal Grandmother other (unknown) Paternal Grandfather Allergies Paternal Uncle Heart Paternal Uncle mggm - in her 60's Social History Tobacco Use Smoking status: Never Smokeless tobacco: Never Tobacco comments: Not at home but grandmother smokes Substance Use Topics Alcohol use: No Drug use: No Review of Systems Constitutional: Negative for chills and fever. HENT: Negative for congestion, ear discharge, ear pain, hearing loss and sore throat. Eyes: Negative for blurred vision, double vision, photophobia, pain, discharge and redness. Respiratory: Negative for cough and shortness of breath. Cardiovascular: Negative for chest pain. Gastrointestinal: Negative for abdominal pain, nausea and vomiting. Musculoskeletal: Negative for myalgias and neck pain. Skin: Negative for rash. Neurological: Positive for headaches. Negative for tremors, sensory change, speech change and focal weakness. Psychiatric/Behavioral: Negative for depression. Objective Blood pressure 100/78, pulse 90, temperature 36.6 ?C (97.9 ?F), resp. rate 19, weight 74.1 kg (163 lb 6.4 oz), last menstrual period 11/22/2022, SpO2 99 %. Physical Exam Constitutional: General: She is not in acute distress. Appearance: She is not diaphoretic. HENT: Head: Normocephalic and atraumatic. Right Ear: Hearing, tympanic membrane, ear canal and external ear normal. Left Ear: Hearing, tympanic membrane, ear canal and external ear normal. Eyes: General: Lids are normal. Lids are everted, no foreign bodies appreciated. No scleral icterus. Right eye: No discharge. Left eye: No discharge. Conjunctiva/sclera: Conjunctivae normal. Pupils: Pupils are equal, round, and reactive to light. Neck: Trachea: Trachea normal. Cardiovascular: Rate and Rhythm: Normal rate and regular rhythm. Heart sounds: Normal heart sounds. Pulmonary: Effort: Pulmonary effort is normal. Breath sounds: Normal breath sounds. Musculoskeletal: Cervical back: Normal range of motion and neck supple. Lymphadenopathy: Cervical: No cervical adenopathy. Skin: Findings: No rash. Neurological: Mental Status: She is alert. She is not disoriented. Sensory: Sensation is intact. Coordination: Coordination is intact. Romberg sign negative. Coordination normal. Cpbrqk-[id number]-Oeycxi Test and Heel to Mart Test normal. Rapid alternating movements normal. Gait: Gait is intact. Deep Tendon Reflexes: Reflexes are normal and symmetric. Reflex Scores: Bicep reflexes are 2+ on the right side and 2+ on the left side. Patellar reflexes are 2+ on the right side and 2+ on the left side. ASSESSMENT/PLAN: 1. Headache, unspecified headache type - ICD9: 784.0, ICD10: R51.9 -use medication as prescribed -follow up if symptoms persist Urgent f/u for worsening s/s. - PREDNISONE 20 MG TABLET - ONDANSETRON 4 MG DISINTEGRATING TABLET Chang Roberto APRN.CNP [facility] 04-18-2023 Instructions Chang Roberto APRN.CNP - 04/18/2023 10:10 AM EDT MIGRAINE HEADACHE: Your exam shows you are having a migraine headache. Migraines can cause many different symptoms. These can include: A general throbbing headache, sometimes on one side of the head. Nausea, vomiting, sinus pain and stuffiness. Visual symptoms (light sensitivity, blind spots, flashing lights). Migraine headaches are caused by changes in the size of the blood vessels in the head and neck. They may be brought on by many things including: Emotional stress, lack of sleep, menstrual periods. Alcohol and some drugs (such as control pills). Diet factors (fasting, caffeine, food preservatives, chocolate). Environmental factors (weather changes, bright lights, odors, smoke). Jarring motions and loud noises. Treatment may require medicines for pain, inflammation, and vomiting. An injection is sometimes needed if the headache is very severe. Long-term care for migraines includes dealing with the trigger factors. Medicines to prevent the blood vessel changes may be needed. Please see your doctor if you are not better in 1-2 days. You should be seen right away if you have a high fever, vomit repeatedly, get a stiff neck, pass out, or show confusion. documented in this encounter [facility] 04-18-2023 History of Presen t illness Narrative Subjective HPI HPI Tyson Diana is a 18 year old female who presents today for CC of h/a, nausea. This started 6 days ago on/off. Has tried otc medication and rx from neurology - seen for migraines. Symptoms are worsened by nothing. Denies head injury, illness, fever, lifestyle changes. Denies possibility of being . .Patient presents with: Nausea: URIAS x 6 days PAST MEDICAL HISTORY Diagnosis Date ADD (attention deficit disorder) 04/15/2014 PMH - PAST MEDICAL HISTORY OF age 1.5 years cyst on left hand - base of left ring finger - did see ortho - no surgery PMH - PAST MEDICAL HISTORY OF normal color vision 05/2010 PAST SURGICAL HISTORY Procedure Laterality Date TONSILLECTOMY & ADENOIDECTOMY <AGE 10 11/2009 Dr. Shree STAFFORD REMOVAL [facility] 02/03/2014 left side of foot, cut out by Dr. Thornton ALLERGIES Amoxicillin MEDICATIONS ubrogepant (UBRELVY) 100 mg tablet Take 1 tab at migraine onset. May repeat once in 2 hours as needed. CRISTA FE 1.5/30, 28, 1.5 mg-30 mcg (21)/75 mg (7) tablet Take 1 tablet by mouth once daily. predniSONE (DELTASONE) 20 mg tablet Take 2 tablets by mouth once daily for 5 days. ondansetron orally disintegrating (ZOFRAN ODT) 4 mg disintegrating tablet Take 1 tablet by mouth every 6 hours as needed for nausea/vomiting. escitalopram oxalate (LEXAPRO) 10 mg tablet Take 1 tablet by mouth once daily. (Patient not taking: Reported on 04/18/2023) loratadine (CLARITIN) 10 mg tablet Take 10 mg by mouth once daily. FAMILY HISTORY Problem Relation Age of Onset Migraines Mother None Father None Sister None Maternal Grandmother None Maternal Grandfather None Paternal Grandmother other (unknown) Paternal Grandfather Allergies Paternal Uncle Heart Paternal Uncle mggm - in her 60's Social History Tobacco Use Smoking status: Never Smokeless tobacco: Never Tobacco comments: Not at home but grandmother smokes Substance Use Topics Alcohol use: No Drug use: No Review of Systems Constitutional: Negative for chills and fever. HENT: Negative for congestion, ear discharge, ear pain, hearing loss and sore throat. Eyes: Negative for blurred vision, double vision, photophobia, pain, discharge and redness. Respiratory: Negative for cough and shortness of breath. Cardiovascular: Negative for chest pain. Gastrointestinal: Negative for abdominal pain, nausea and vomiting. Musculoskeletal: Negative for myalgias and neck pain. Skin: Negative for rash. Neurological: Positive for headaches. Negative for tremors, sensory change, speech change and focal weakness. Psychiatric/Behavioral: Negative for depression. Objective Blood pressure 100/78, pulse 90, temperature 36.6 C (97.9 F), resp. rate 19, weight 74.1 kg (163 lb 6.4 oz), last menstrual period 11/22/2022, SpO2 99 %. Physical Exam Constitutional: General: She is not in acute distress. Appearance: She is not diaphoretic. HENT: Head: Normocephalic and atraumatic. Right Ear: Hearing, tympanic membrane, ear canal and external ear normal. Left Ear: Hearing, tympanic membrane, ear canal and external ear normal. Eyes: General: Lids are normal. Lids are everted, no foreign bodies appreciated. No scleral icterus. Right eye: No discharge. Left eye: No discharge. Conjunctiva/sclera: Conjunctivae normal. Pupils: Pupils are equal, round, and reactive to light. Neck: Trachea: Trachea normal. Cardiovascular: Rate and Rhythm: Normal rate and regular rhythm. Heart sounds: Normal heart sounds. Pulmonary: Effort: Pulmonary effort is normal. Breath sounds: Normal breath sounds. Musculoskeletal: Cervical back: Normal range of motion and neck supple. Lymphadenopathy: Cervical: No cervical adenopathy. Skin: Findings: No rash. Neurological: Mental Status: She is alert. She is not disoriented. Sensory: Sensation is intact. Coordination: Coordination is intact. Romberg sign negative. Coordination normal. Qbemdp-Wrve-Ihzsbw Test and Heel to Mart Test normal. Rapid alternating movements normal. Gait: Gait is intact. Deep Tendon Reflexes: Reflexes are normal and symmetric. Reflex Scores: Bicep reflexes are 2+ on the right side and 2+ on the left side. Patellar reflexes are 2+ on the right side and 2+ on the left side. ASSESSMENT/PLAN: 1. Headache, unspecified headache type - ICD9: 784.0, ICD10: R51.9 -use medication as prescribed -follow up if symptoms persist Urgent f/u for worsening s/s. - PREDNISONE 20 MG TABLET - ONDANSETRON 4 MG DISINTEGRATING TABLET Chang Roberto APRN.PUMPMAN documented in this encounter [facility] 11-26-2022 Note HNO ID: [id number] Author: Porsha Holloway MD Service: ? Author Type: Physician Type: Progress Notes Filed: 11/26/2022 1:49 PM Note Text: Patient brought in today by self presents today with concern about recent blood glucose levels, which have ranged mostly 80's to low-100's. She did have 206 one time, but other levels were normal that day. She has been checking over the past several weeks when she felt that blood glucose could be low. She is otherwise well ROS Gen; no fever or weight loss Resp; neg GI; neg Neuro: HAs have been responding well to ubrogepant (prescribed by neurologist) GENERAL: alert and active in no apparent distress, smiling, well-appearing NEUROLOGICAL : Normal age appropriate gait ASSESSMENT: Concerns about blood glucose levels - Rileigh reassured that levels were WNL. The one elevated level of 206 resolved within a few hours and has not occurred since then. PLAN: Will check Hgb A1C to confirm that glucose levels have been reassuring Will recheck Vit D b/c h/o vit D deficiency Porsha Holloway MD [facility] 11-26-2022 History of Presen t illness Narrative Patient brought in today by self presents today with concern about recent blood glucose levels, which have ranged mostly 80's to low-100's. She did have 206 one time, but other levels were normal that day. She has been checking over the past several weeks when she felt that blood glucose could be low. She is otherwise well ROS Gen; no fever or weight loss Resp; neg GI; neg Neuro: HAs have been responding well to ubrogepant (prescribed by neurologist) GENERAL: alert and active in no apparent distress, smiling, well-appearing NEUROLOGICAL : Normal age appropriate gait ASSESSMENT: Concerns about blood glucose levels - Rileigh reassured that levels were WNL. The one elevated level of 206 resolved within a few hours and has not occurred since then. PLAN: Will check Hgb A1C to confirm that glucose levels have been reassuring Will recheck Vit D b/c h/o vit D deficiency Porsha Holloway MD documented in this encounter [facility] 11-12-2022 Miscellaneous Notes PA questions for Ubrelvy completed via PA pool. Joelle Monaco RN documented in this encounter [facility] 11-09-2022 Note HNO ID: [id number] Author: Jessica Sherman, DO Service: ? Author Type: Physician Type: Progress Notes Filed: 11/09/2022 5:06 PM Note Text: Headache Center - Follow-up Visit ASSESSMENT: 17 year old female with history significant for anxiety and migraine without aura. PLAN: (Please see typed patient instructions for detailed instructions) ---> Acute Treatment: -Will change to a gepant, she hasn't responded to triptans and has side effects. We will get a precert for an Oral Calcitonin Gene-Related Peptide Receptor Antagonist (GEPANT) Ubrogepant for the rescue treatment of episodic migraine. This patient meets AHS criteria for treatment of migraine with an oral small molecule CGRP antagonist GEPANT. The FDA has approved GEPANTS for the treatment of migraine. Specifically, the patient has 5 headaches per month, lasting 4 or more hours/day associated with photophobia, phonophobia, nausea for three or more months. Medication overuse headache has been ruled out.Patient will not use with another GEPANT. The patient has tried and failed the following : Anti-Migraine Rizatriptan (Maxalt) Sumatriptan (Imitrex, Sumavel) ---> Preventive Treatment: -Supplements discussed. -If she wants to add a preventive, she'll let me know. ---> Headache education was done. Discussed lifestyle modification including increased oral hydration, decreased caffeine, exercise and stress management. Discussed treatment options including preventive and acute medications, natural supplements. Discussed medication overuse headache and to limit use of acute treatments to no more than 2 days/week or 10 days/month. Discussed medication side effects, adverse reactions and drug interactions. Written educational materials and patient instructions outlining all of the above were given. ---> Follow-up: 6 months. ---- Last visit: 04/27/22 Interval Headache Hx: 5 overall headache days per month which are migraine. New Labs/Imaging: n/a HEADACHE SCORES: HIT-6 11/09/2022 HIT-6 64 (Severe impact) NIKITA - 2/7 SCORES 08/11/2021 11/09/2022 NIKITA-2 Score 0 0 NIKITA-7 Score 0 - Migraine Specific QOL - Higher scores indicate better HRQL 11/09/2022 Role Function-Restrictive Transformed Score (range: 0-100) 51.43 Role Function-Preventive Transformed Score (range: 0-100) 60 Emotional Function Transformed Score (range: 0-100) 53.33 PHQ-9 12/02/2021 02/24/2022 11/09/2022 Score 0 0 0 ------- MEDS: Current Outpatient Medications Medication Sig SUMAtriptan (IMITREX) 100 mg tablet Take 1 tab at migraine onset. May repeat once in 2 hours if needed. escitalopram oxalate (LEXAPRO) 10 mg tablet Take 1 tablet by mouth once daily. CRISTA FE 1.5/30, 28, 1.5 mg-30 mcg (21)/75 mg (7) tablet Take 1 tablet by mouth once daily. loratadine (CLARITIN) 10 mg tablet Take 10 mg by mouth once daily. No current facility-administered medications for this visit. Prior Therapies Duration of Use Dose Reason for Discontinuation Anti-Depressant and Antipsychotic Escitalopram (Lexapro) Antiemetics Ondansetron Anti-Migraine Rizatriptan (Maxalt) Sumatriptan (Imitrex, Sumavel) Supplements Migravent Other Medications Diphenhydramine (Benadryl) Methylprednisolone (Medrol) Prednisone Over the Counter Medications Acetaminophen (Tylenol) Acetaminophen/Aspirin/Caffeine (Excedrin, Goody?s) Aspirin Ibuprofen (Advil, Motrin) Naproxen sodium (Aleve) REVIEW OF SYSTEMS: Review of system : unchanged from the previous visit (sleep patterns, mood, energy, appetite, stress, exercising). Physical Examination: BP 110/68 Pulse 76 Ht 160 cm (5' 3 ) Wt 71.7 kg (158 lb) LMP 02/23/2022 (Exact Date) BMI 27.99 kg/m? GEN: Alert. NAD. Normal affect. Cooperative. NEUROLOGICAL: Alert and oriented. Attentive. Thought process and content unremarkable. Follows commands appropriately. Speech fluent. Stable primary gait. Jessica Sherman DO [facility] [place] Department of [facility] [id number] [facility], [place] [id number] Level of service: Est level 2 (10-19 min). Time spent 19 min on the day of service, which included preparing to see the patient, [id number] patient care, completing clinical documentation, obtaining and/or reviewing separately obtained history, counseling and educating the patient/family/caregiver, and ordering medications, tests, or procedures. Medical Decision Making: Medical Decision Making Level: 1 - N/A cc: Porsha Holloway [address] [place] [address] [facility] 10-11-2022 Note HNO ID: [id number] Author: Flor Cline APRN.PUMPMAN Service: ? Author Type: Nurse Practitioner Type: Progress Notes Filed: 10/11/2022 8:02 AM Note Text: Subjective The history is provided by the patient. No psychiatric cns was used. HPI Tyson Diana is a 17 year old female who presents today for CC of sore throat for 4 days. She also has a mild cough. She was exposed to the flu. She has used tylenol. BP 98/78 Pulse 116 Temp 36.7 ?C (98.1 ?F) Resp 21 Wt 71.8 kg (158 lb 3.2 oz) LMP 02/23/2022 (Exact Date) SpO2 98% Social History Tobacco Use Smoking status: Never Smokeless tobacco: Never Tobacco comments: Not at home but grandmother smokes Substance Use Topics Alcohol use: No Drug use: No PAST MEDICAL HISTORY Diagnosis Date ADD (attention deficit disorder) 04/15/2014 PMH - PAST MEDICAL HISTORY OF age 3.5 years cyst on left hand - base of left ring finger - did see ortho - no surgery PMH - PAST MEDICAL HISTORY OF normal color vision 05/2010 I have confirmed and edited as necessary, the [facility] Review of Systems Constitutional: Negative for chills, fever and malaise/fatigue. HENT: Positive for sore throat. Negative for congestion, ear pain and sinus pain. Respiratory: Positive for cough. Negative for sputum production, shortness of breath and wheezing. Cardiovascular: Negative for chest pain. Gastrointestinal: Negative for abdominal pain, diarrhea, nausea and vomiting. Musculoskeletal: Negative for myalgias. Neurological: Negative for headaches. Objective Physical Exam Vitals and nursing note reviewed. HENT: Head: Normocephalic and atraumatic. Right Ear: Tympanic membrane, ear canal and external ear normal. Left Ear: Tympanic membrane, ear canal and external ear normal. Nose: No mucosal edema, congestion or rhinorrhea. Right Sinus: No maxillary sinus tenderness or frontal sinus tenderness. Left Sinus: No maxillary sinus tenderness or frontal sinus tenderness. Mouth/Throat: Pharynx: Uvula midline. Posterior oropharyngeal erythema present. No oropharyngeal exudate. Cardiovascular: Rate and Rhythm: Normal rate and regular rhythm. Heart sounds: Normal heart sounds. Pulmonary: Effort: Pulmonary effort is normal. Breath sounds: Normal breath sounds. Lymphadenopathy: Head: Right side of head: No submental, submandibular or tonsillar adenopathy. Left side of head: No submental, submandibular or tonsillar adenopathy. Cervical: No cervical adenopathy. Skin: General: Skin is warm and dry. Neurological: Mental Status: She is alert and oriented to person, place, and time. Psychiatric: Mood and Affect: Affect normal. ASSESSMENT/PLAN: 1. Sore throat - ICD9: 462, ICD10: J02.9 (primary diagnosis) - suspect viral - Alere Strep Test negativew, no culture pending - STREP A MOLECULAR (POC) 2. URI, acute - ICD9: 465.9, ICD10: J06.9 - Discussed viral etiology and rationale for treatment. - Symptomatic treatment with prn analgesia - Supportive care with fluids and rest - The patient may also use warm salt water gargles, throat lozenges and/or OTC throat spray as needed. - After discussion declines covid/flu testing due to being on day 4 Diagnosis and treatment plan were discussed and questions were answered to the patient's satisfaction. Pt acknowledged understanding of concepts and follow up plan. Specific signs and symptoms that would indicate the need for higher level of care were discussed in detail warranting prompt ER evaluation. Flor Cline APRN.CNP [facility] 10-11-2022 Instructions lFor Cline APRN.FIONA - 10/11/2022 7:49 AM EDT Strep is negative Rest, increase water intake Motrin or Tylenol as needed for fever or pain. Salt water gargles, chloraseptic spray or lozenges as needed for sore throat. Warm beverages, honey. Nasal saline spray as needed Cool mist humidifier at night Tylenol (generic acetaminophen) 500 mg-2 tabs every 8 hrs. as needed for fever and aches Ibuprofen 600 mg (3-200mg tablets) every 6 hours Mucinex DM as needed for symptoms A cold normally lasts 7-10 days. If your symptoms are lasting longer, develop fever, or worsening by that time instead of improving then return to clinic or follow up with PCP for re-evaluation. * Seek medical care immediately, call 911, go to ER if you have chest pain, difficulty breathing, shortness of breath, inability to swallow. documented in this encounter [facility] 10-11-2022 History of Presen t illness Narrative Subjective The history is provided by the patient. No psychiatric cns was used. HPI Tyson Diana is a 17 year old female who presents today for CC of sore throat for 4 days. She also has a mild cough. She was exposed to the flu. She has used tylenol. BP 98/78 Pulse 116 Temp 36.7 C (98.1 F) Resp 21 Wt 71.8 kg (158 lb 3.2 oz) LMP 02/23/2022 (Exact Date) SpO2 98% Social History Tobacco Use Smoking status: Never Smokeless tobacco: Never Tobacco comments: Not at home but grandmother smokes Substance Use Topics Alcohol use: No Drug use: No PAST MEDICAL HISTORY Diagnosis Date ADD (attention deficit disorder) 04/15/2014 PMH - PAST MEDICAL HISTORY OF age 3.5 years cyst on left hand - base of left ring finger - did see ortho - no surgery PMH - PAST MEDICAL HISTORY OF normal color vision 05/2010 I have confirmed and edited as necessary, the [facility] Review of Systems Constitutional: Negative for chills, fever and malaise/fatigue. HENT: Positive for sore throat. Negative for congestion, ear pain and sinus pain. Respiratory: Positive for cough. Negative for sputum production, shortness of breath and wheezing. Cardiovascular: Negative for chest pain. Gastrointestinal: Negative for abdominal pain, diarrhea, nausea and vomiting. Musculoskeletal: Negative for myalgias. Neurological: Negative for headaches. Objective Physical Exam Vitals and nursing note reviewed. HENT: Head: Normocephalic and atraumatic. Right Ear: Tympanic membrane, ear canal and external ear normal. Left Ear: Tympanic membrane, ear canal and external ear normal. Nose: No mucosal edema, congestion or rhinorrhea. Right Sinus: No maxillary sinus tenderness or frontal sinus tenderness. Left Sinus: No maxillary sinus tenderness or frontal sinus tenderness. Mouth/Throat: Pharynx: Uvula midline. Posterior oropharyngeal erythema present. No oropharyngeal exudate. Cardiovascular: Rate and Rhythm: Normal rate and regular rhythm. Heart sounds: Normal heart sounds. Pulmonary: Effort: Pulmonary effort is normal. Breath sounds: Normal breath sounds. Lymphadenopathy: Head: Right side of head: No submental, submandibular or tonsillar adenopathy. Left side of head: No submental, submandibular or tonsillar adenopathy. Cervical: No cervical adenopathy. Skin: General: Skin is warm and dry. Neurological: Mental Status: She is alert and oriented to person, place, and time. Psychiatric: Mood and Affect: Affect normal. ASSESSMENT/PLAN: 1. Sore throat - ICD9: 462, ICD10: J02.9 (primary diagnosis) - suspect viral - Alere Strep Test negativew, no culture pending - STREP A MOLECULAR (POC) 2. URI, acute - ICD9: 465.9, ICD10: J06.9 - Discussed viral etiology and rationale for treatment. - Symptomatic treatment with prn analgesia - Supportive care with fluids and rest - The patient may also use warm salt water gargles, throat lozenges and/or OTC throat spray as needed. - After discussion declines covid/flu testing due to being on day 4 Diagnosis and treatment plan were discussed and questions were answered to the patient's satisfaction. Pt acknowledged understanding of concepts and follow up plan. Specific signs and symptoms that would indicate the need for higher level of care were discussed in detail warranting prompt ER evaluation. Flor Cline APRN.FIONA documented in this encounter [facility] 08-07-2022 Influenza virus A and B RNA and SARS-CoV-2 (COVID-19) N gene panel DOROTEO+probe (Resp) COVID 19 RESULT: SARS-CoV-2 (Agent of COVID-19) Not Detected by RT-PCR or equivalent method. This test was developed and its performance characteristics determined by [facility]'s [facility] [place]. This test has been authorized by FDA under an Emergency Use Authorization (EUA). This test has been validated in accordance with the FDA's Guidance Document Policy for Diagnostics Testing in Laboratories Certified to Perform High Complexity Testing under CLIA prior to Emergency use Authorization for Coronavirus Disease 2019 during the Public Health Emergency issued on September 12, 2019. Test performed by [facility], [facility] [place], [address] [place] [address]. INFLUENZA A PCR: Negative for Influenza A by RT-PCR INFLUENZA B PCR: Negative for Influenza B by RT-PCR [facility] documented as of this encounter (statuses as of 12/05/2021) [facility] History of Past illness Narrative* Problem Noted Date Resolved Date Tension headache 10/27/2015 07/19/2020 Atopic dermatitis 10/26/2011 03/16/2014 documented as of this encounter (statuses as of 03/06/2022) [facility] of Past illness Narrative* Problem Noted Date Resolved Date Tension headache 10/27/2015 07/19/2020 Atopic dermatitis 10/26/2011 03/16/2014 documented as of this encounter (statuses as of 03/16/2022) [facility] of [facility] illness Narrative* Problem Noted Date Resolved Date Tension headache 10/27/2015 07/19/2020 Atopic dermatitis 10/26/2011 03/16/2014 documented as of this encounter (statuses as of 04/03/2022) [facility] of [facility] illness Narrative* Problem Noted Date Resolved Date Tension headache 10/27/2015 07/19/2020 Atopic dermatitis 10/26/2011 03/16/2014 documented as of this encounter (statuses as of 04/27/2022) [facility] of [facility] Narrative* Problem Noted Date Resolved Date Tension headache 10/27/2015 07/19/2020 Atopic dermatitis 10/26/2011 03/16/2014 documented as of this encounter (statuses as of 08/07/2022) [facility] Narrative* Problem Noted Date Resolved Date Tension headache 10/27/2015 07/19/2020 Atopic dermatitis 10/26/2011 03/16/2014 documented as of this encounter (statuses as of 10/11/2022) [facility] Narrative* Problem Noted Date Resolved Date Tension headache 10/27/2015 07/19/2020 Atopic dermatitis 10/26/2011 03/16/2014 documented as of this encounter (statuses as of 11/12/2022) [facility] Narrative* Problem Noted Date Resolved Date Tension headache 10/27/2015 07/19/2020 Atopic dermatitis 10/26/2011 03/16/2014 documented as of this encounter (statuses as of 11/26/2022) [facility] Narrative* Problem Noted Date Diagnosed Date Resolved Date Tension headache 10/27/2015 07/19/2020 Atopic dermatitis 10/26/2011 03/16/2014 documented as of this encounter (statuses as of 04/19/2023) [facility] Narrative* Problem Noted Date Diagnosed Date Resolved Date Tension headache 10/27/2015 07/19/2020 Atopic dermatitis 10/26/2011 03/16/2014 documented as of this encounter (statuses as of 05/02/2023) [facility] Diagnosis Labyrinthitis, unspecified laterality- [facility] Migraine unspecified- [facility] Diagnosis Chalazion left upper eyelid- [facility] Diagnosis Migraine without aura and without status migrainosus, not intractable- Primary Migraine without aura, without mention of intractable migraine without mention of status migrainosus [facility] Diagnosis Sore throat- Primary Acute pharyngitis URI, acute Acute upper respiratory infections of unspecified site [facility] Diagnosis Screening for endocrine, nutritional, metabolic and immunity disorder- Primary Screening for other and unspecified endocrine, nutritional, metabolic, and immunity disorders Vitamin D deficiency Unspecified vitamin D deficiency Hyperglycemia Other abnormal glucose documented in this encounter [facility] note* Diagnosis Headache, unspecified headache type- Primary documented in this encounter [facility] note* Diagnosis Migraine without aura and without status migrainosus, not intractable- Primary Migraine without aura, without mention of intractable migraine without mention of status migrainosus documented in this encounter [facility] Reason for Referral Specialty Diagnoses / Procedures Referred By Heather witt Referred To Contact Neurology Diagnoses Migraine unspecified Procedures CONSULT TO NEUROLOGY OFFICE/OUTPATIENT [facility] 60-74 MINUTES Porsha Holloway MD [address] [place] [address] Referral ID Status Reason Start Date Expiration Date Visits Requested Visits Authorized [id number] Authorized PCP Requested Referral 03/05/2022 03/05/2023 1 1 Summary Purpose Family History No Family History Records Found Advance Directives No Advanced Directives Records Found Additional Source Comments Source Comments (unrecognize d section and content) In the event this informatio n is protected by the Federal Confidentiality of Alcohol and Drug Abuse Patient Records regulations: The Federal rules restrict any use of the information to criminally investigate or prosecute any alcohol or drug abuse patient.[facility] the event this information is protected by the Federal Confidentiality of Alcohol and Drug Abuse Patient Records regulations: The Federal rules restrict any use of the information to criminally investigate or prosecute any alcohol or drug abuse patient.[facility] the event this information is protected by the Federal Confidentiality of Alcohol and Drug Abuse Patient Records regulations: The Federal rules restrict any use of the information to criminally investigate or prosecute any alcohol or drug abuse patient.[facility] the event this information is protected by the Federal Confidentiality of Alcohol and Drug Abuse Patient Records regulations: The Federal rules restrict any use of the information to criminally investigate or prosecute any alcohol or drug abuse patient.[facility] the event this information is protected by the Federal Confidentiality of Alcohol and Drug Abuse Patient Records regulations: The Federal rules restrict any use of the information to criminally investigate or prosecute any alcohol or drug abuse patient.[facility] the event this information is protected by the Federal Confidentiality of Alcohol and Drug Abuse Patient Records regulations: The Federal rules restrict any use of the information to criminally investigate or prosecute any alcohol or drug abuse patient.[facility] the event this information is protected by the Federal Confidentiality of Alcohol and Drug Abuse Patient Records regulations: The Federal rules restrict any use of the information to criminally investigate or prosecute any alcohol or drug abuse patient.[facility] the event this information is protected by the Federal Confidentiality of Alcohol and Drug Abuse Patient Records regulations: The Federal rules restrict any use of the information to criminally investigate or prosecute any alcohol or drug abuse patient.[facility] the event this information is protected by the Federal Confidentiality of Alcohol and Drug Abuse Patient Records regulations: The Federal rules restrict any use of the information to criminally investigate or prosecute any alcohol or drug abuse patient.[facility] the event this information is protected by the Federal Confidentiality of Alcohol and Drug Abuse Patient Records regulations: The Federal rules restrict any use of the information to criminally investigate or prosecute any alcohol or drug abuse patient.[facility] Center[facility] the event this information is protected by the Federal Confidentiality of Alcohol and Drug Abuse Patient Records regulations: The Federal rules restrict any use of the information to criminally investigate or prosecute any alcohol or drug abuse patient.[facility] Reason for Visit (unrecogniz ed section and content) Reason Comments Migraines Would like referral to Neuro-mom goes to Neuro-Dr. Sherman with [facility] Reason Comments Eye Problem Left Eye Eyelid is swollen a nd painful x this AM Reason Onset Date Comments Refill Request 04/02/2022 Reason Comments New Patient migraines Specialty Diagnoses / Procedures Referred By Heather witt Referred To Contact Neurology Diagnoses Migraine unspecified Procedures CONSULT TO NEUROLOGY OFFICE/OUTPATIENT NEW HIGH MDM 60-74 MINUTES Porsha Holloway MD [address] [place] [address] Referral ID Status Reason Start Date Expiration Date V isits Requested Visits Authorized [id number] Closed PCP Requested Referral 03/05/2022 03/05/2023 1 1 Reason Comments Ear Pain Right ear pain, sinu s drainage and ST x 2 days Reason Comments Sore Throat X 4 days Reason Comments Insurance Authorization Ubrelvy 100 mg Reason Comments Discussion About migraines, fee ls like blood sugar is related to her migraines, checked with glucometer and was anywhere from 87-206, this issue started towards the end of October, mother would like Vit D checked Reason Comments Nausea URIAS x 6 days Reason Comments Follow Up Care Teams (unrecognized sec tion and content) Composite Mechanic Relationship Specialty Start Date End Date Porsha Holloway MD [address] [place] [address] [facility] General 04/20/09 Composite Mechanic Relationship Specialty Start Date End Date Porsha Holloway MD [address] [facility] [place] [address] [facility] 04/20/09 Composite Mechanic Relationship Specialty Start Date End Date Porsha Holloway MD [address] [place] [address] [facility] 04/20/09 Composite Mechanic Relationship Specialty Start Date End Date Porsha Holloway MD [address] [place] [address] [facility] 04/20/09 Composite Mechanic Relationship Specialty Start Date End Date Porsha Holloway MD [address] [place] [address] [facility] 04/20/09 Composite Mechanic Relationship Specialty Start Date End Date Porsha Holloway MD [address] [place] [address] [facility] 04/20/09 Composite Mechanic Relationship Specialty Start Date End Date Porsha Holloway MD [address] [place] [address] [facility] 04/20/09 INFORMATION SOURCE (unrecogn ized section and content) FOR RECORDS PERTAINING TO PATIENTS WHO ARE OR HAVE BEEN ENROLLED IN A CHEMICAL DEPENDENCY/SUBSTANCEABUSE PROGRAM, SOME INFORMATION MAY BE OMITTED. This clinical summary was aggregated from multiple sources. Caution should be exercised in using it in the provision of clinical care. This summary normalizes information from multiple sources, and as a consequence, information in this document may materially change the coding, format and clinical context of patient data. In addition, data may be omitted in some cases. CLINICAL DECISIONS SHOULD BE BASED ON THE PRIMARY CLINICAL RECORDS. [facility]. provides no warranty or guarantee of the accuracy or completeness of information in this document.
== END 2023-07-29 12:27 | disposition home or self-care (01) ==
LOC: ED 11:50
PROVIDERS: Emergency Provider Emergency Medicine; PCP Pediatrics; Visit Provider Emergency Medicine
DX: G43.909 Migraine, unspecified, not intractable, without status migrainosus (principal)
CPT/HCPCS: 96361; 96374; 96375; 99284; J7030